=== PATIENT | female | born 1980 ===

== ENCOUNTER 2018-02-04 20:13 | Emergency (ER) | payer BC ==
[2018-02-04 20:28] VITALS: O2SAT 100
[2018-02-04] MEDS ORDERED: Sodium Chloride 0.9% 1,000 ML IV STA (21:00)
[2018-02-04 21:13] LABS: BASO % 0.5 % (0.0-2.0); EOS # 0.2 K/uL (0.0-0.7); EOS % 1.7 % (0.0-4.0); LYMPH # 1.9 K/uL (1.0-4.3); LYMPH % 21.5 % (20.0-40.0); MEAN CELL VOLUME 79.1 fl (81.0-99.0); MEAN CORPUSCULAR HEMOGLOBIN 26.3 pg (27.0-31.0); MEAN CORPUSCULAR HGB CONC 33.3 g/dL (33.0-37.0); MEAN PLATELET VOLUME 7.6 fl (7.2-11.7); MONO # 0.8 K/uL (0.0-0.8); MONO % 9.3 % (0.0-10.0); NRBC % 0.1 % (0.0-0.0); RBC 4.93 Mil/uL (3.80-5.20); RED CELL DISTRIBUTION WIDTH 14.1 % (11.5-14.5)
[2018-02-04 21:40] LABS: BLOOD UREA NITROGEN 15 mg/dl (7-17); CALCIUM 8.9 mg/dL (8.4-10.2); GFR AFRICAN-AMERICAN > 60; GFR NON-AFRICAN AMERICAN > 60
--- NOTE | 2018-02-04 21:51 | ED PDOC ---
Syncope/Near Syncope/Dizziness Time Seen by Provider: 02/04/18 20:41 Chief Complaint (Nursing): Syncope Chief Complaint (Provider): Syncope History Per: Patient History/Exam Limitations: no limitations Onset/Duration Of Symptoms: Sudden Onset Current Symptoms Are (Timing): Better Additional Complaint(s): 37 year old female with pmHx of anxiety, arrives to the ED for an evaluation of a witnessed syncopal episode prior to arrival. Patient states feeling dizziness with spinning sensation exacerbated with head movements prior to onset. Her witnessed 2-3 seconds of LOC and able to catch patient before she fell to the ground then returned to normal mental status. Patient denies any head injury, seizures, chest pain, headache, difficulty breathing, weakness, numbness or tinnitis. She admits to recent anxiety and prescribed Clozapine but has not start it yet. PMD: none provided Past Medical History Reviewed: Historical Data, Nursing Documentation, Vital Signs Vital Signs: Last Vital Signs Temp 97.9 F 02/04/18 20:25 Pulse 78 02/04/18 20:25 Resp 18 02/04/18 20:25 BP 120/68 02/04/18 20:25 Pulse Ox 100 02/04/18 20:25 - Medical History PMH: Anxiety - Surgical History Surgical History: Appendectomy, - Family History Family History: States: No Known Family Hx - Social History Current smoker - smoking cessation education provided: No Ex-Smoker (has not smoked in the last 12 months): No Alcohol: None Drugs: Denies - Home Medications Home Medications: Ambulatory Orders Medication Instructions Recorded Meclizine [Meclizine*] 25 mg PO TID PRN #15 tab 02/04/18 - Allergies Allergies/Adverse Reactions: Allergies Allergy/AdvReac Type Severity Reaction Status Date / Time No Known Allergies Allergy Verified 02/04/18 20:25 Review of Systems ROS Statement: Except As Marked, All Systems Reviewed And Found Negative ENT: Negative for: Other (tinnitis) Cardiovascular: Negative for: Chest Pain Respiratory: Negative for: Shortness of Breath Neurological: Positive for: Dizziness, Other (LOC). Negative for: Weakness, Numbness, Seizures, Headache Physical Exam - Reviewed Nursing Documentation Reviewed: Yes Vital Signs Reviewed: Yes - Physical Exam Appears: Positive for: Well, Non-toxic, No Acute Distress Head Exam: Positive for: ATRAUMATIC, NORMAL INSPECTION, NORMOCEPHALIC Skin: Positive for: Normal Color Eye Exam: Positive for: Normal appearance, EOMI, PERRL ENT: Positive for: Normal ENT Inspection Neck: Positive for: Normal, Supple Cardiovascular/Chest: Positive for: Regular Rate, Rhythm, Chest Non Tender. Negative for: Murmur Respiratory: Positive for: Normal Breath Sounds. Negative for: Wheezing, Respiratory Distress Gastrointestinal/Abdominal: Positive for: Normal Exam, Soft. Negative for: Tenderness Back: Positive for: Normal Inspection Extremity: Positive for: Normal ROM (upper/lower) Neurologic/Psych: Positive for: Alert (x3), vinyl hanger II-XII (grossly intact), Oriented. Negative for: Motor/Sensory Deficits, Aphasia - Laboratory Results Result Diagrams: 02/04/18 21:05 02/04/18 21:05 Urine POC: Negative - ECG ECG: Positive for: Interpreted By Me ECG Rhythm: Positive for: Normal QRS, Sinus Rhythm. Negative for: ST/T Changes Rate: 93 O2 Sat by Pulse Oximetry: 100 (RA) Pulse Ox Interpretation: Normal - Progress ED Course And Treament: Time: 2149 --Labs reviewed: no significant clinical abnormality. Time: 2158 --CT head FINDINGS: Brain: Unremarkable. No hemorrhage. No significant white matter disease. No edema. Ventricles: Unremarkable. No ventriculomegaly. Bones/joints: Unremarkable. No acute fracture. Soft tissues: Unremarkable. Sinuses: Unremarkable as visualized. No acute sinusitis. Mastoid air cells: Unremarkable as visualized. No mastoid effusion. IMPRESSION: No evidence of acute intracranial hemorrhage Re-evaluation Time: 23:08 Condition: Re-examined, Improved Medical Decision Making Medical Decision Making: Initial Impression: Dizziness: Syncope Differential Diagnosis: Benign Paroxysmal Positional Vertigo; central vertigo; cardiac arrythmia; seizure; CVA; vasovagal syncope; psychogenic illness; anxiety Initial Plan: * CT head without contrast * EKG * Alcohol serum * BMP * Troponin I * Urine * CBC * Antivert 25mg PO * NS 1,000ml per 1,000mls/hr 2308 Upon reevaluation, patient ambulated without dizziness and with steady gait. Scribe Attestation: Documented by Chen Wallace, acting as a scribe for Janie Herron MD. Provider Scribe Attestation: All medical record entries made by the Scribe were at my direction and personally dictated by me. I have reviewed the chart and agree that the record accurately reflects my personal performance of the history, physical exam, medical decision making, and the department course for this patient. I have also personally directed, reviewed, and agree with the discharge instructions and disposition. Disposition - Clinical Impression Clinical Impression: Syncope, Vertigo, Anxiety - Patient ED Disposition Is Patient to be Admitted: No Doctor Will See Patient In The: Office Counseled Patient/Family Regarding: Studies Performed, Diagnosis, Need For Followup - Disposition Referrals: [facility] [Outside] Disposition: Routine/Home Disposition Time: 23:09 Condition: STABLE Additional Instructions: Take your medications as instructed. Follow up with your PCP in 2-3 days. Prescriptions: Meclizine [Meclizine*] 25 mg PO TID PRN #15 tab PRN Reason: Dizziness Instructions: Vertigo (a Type of Dizziness), Syncope (Fainting) (DC) Print Language: CITIZEN OF [place]
[2018-02-04 23:05] VITALS: PULSE 93
[2018-02-04 23:11] VITALS: BP 121/74; RESP 16; TEMP 98.2
--- NOTE | 2018-02-05 08:25 | CT ---
Date of service: 02/04/2018 PROCEDURE: CT HEAD WITHOUT CONTRAST. HISTORY: dizziness COMPARISON: None available. TECHNIQUE: Axial computed tomography images were obtained through the head/brain without intravenous contrast. Radiation dose: Total exam DLP = 819 mGy-cm. This CT exam was performed using one or more of the following dose reduction techniques: Automated exposure control, adjustment of the mA and/or kV according to patient size, and/or use of iterative reconstruction technique. FINDINGS: HEMORRHAGE: No intracranial hemorrhage. BRAIN: No mass effect or edema. No atrophy or chronic microvascular ischemic changes. VENTRICLES: Unremarkable. No hydrocephalus. CALVARIUM: Unremarkable. PARANASAL SINUSES: Unremarkable as visualized. No significant inflammatory changes. MASTOID AIR CELLS: Unremarkable as visualized. No inflammatory changes. OTHER FINDINGS: None. IMPRESSION: Normal CT of the Head. Concordant results (preliminary interpretation) provided by [facility].
--- NOTE | 2018-02-05 13:26 | CARD ---
APPROVED REPORT Date of service: 02/04/2018 EKG Measurement Heart [id number] <Conclusion> Normal sinus rhythm Non specific Junctional ST depressio Abnormal ECG
== END 2018-02-04 23:46 | disposition home or self-care (01) ==
LOC: H.ER 20:13
DX: R55 Syncope and collapse (principal); R42 Dizziness and giddiness; F41.9 Anxiety disorder, unspecified
CPT/HCPCS: 70450; 80048; 81025; 84484; 85025; 93005; 99285; G0480; J7030

== ENCOUNTER 2018-03-10 17:55 | Emergency (ER) | payer BC ==
[2018-03-10 18:01] VITALS: RESP 16; TEMP 99.4
--- NOTE | 2018-03-10 18:42 | ED PDOC ---
HPI: Headache Time Seen by Provider: 03/10/18 18:12 Chief Complaint (Nursing): Headache Chief Complaint (Provider): Headache History Per: Patient History/Exam Limitations: no limitations Onset/Duration Of Symptoms: Days (x2 weeks) Current Symptoms Are (Timing): Still Present Additional Complaint(s): 37 year old female with a history of migraines and anxiety presents to the ED complaining of left sided and posterior headache onset 2 weeks ago. Patient reports pain worsened today at 3 pm. She has associated left sided neck and shoulder pain that increases with touch and movement. Patient states her migraines never last this long or have associated muscle pain. 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 Patient describes pain as an 8 out of 10 in severity, but denies fever, chills, nausea, vomiting, photophobia, phonophobia, neck stiffness , weakness, numbness, abdominal pain, chest pain, shortness of breath or any other medical complaints. Patient was recently seen in this ED on 02/04/18 for syncopal episode associated dizziness, she had an unremarkable workup including head CT and labs. PMD: cannot recall LNMP: 2 weeks ago Past Medical History Reviewed: Historical Data, Nursing Documentation, Vital Signs Vital Signs: Last Vital Signs Temp 99.4 F 03/10/18 18:00 Pulse 101 H 03/10/18 18:00 Resp 16 03/10/18 18:00 BP 113/75 03/10/18 18:00 Pulse Ox 99 03/10/18 18:00 - Medical History PMH: Anxiety, Migraine - Surgical History Surgical History: Appendectomy, - Family History Family History: States: Unknown Family Hx - Social History Current smoker - smoking cessation education provided: No Ex-Smoker (has not smoked in the last 12 months): No Alcohol: None Drugs: Denies - Home Medications Home Medications: Ambulatory Orders Medication Instructions Recorded Meclizine [Meclizine*] 25 mg PO TID PRN #15 tab 02/04/18 Cyclobenzaprine [Cyclobenzaprine 10 mg PO Q8 PRN #12 tab 03/10/18 HCl] Naproxen [Naprosyn] 500 mg PO BID PRN #20 tablet 03/10/18 - Allergies Allergies/Adverse Reactions: Allergies Allergy/AdvReac Type Severity Reaction Status Date / Time No Known Allergies Allergy Verified 02/04/18 20:25 Review of Systems ROS Statement: Except As Marked, All Systems Reviewed And Found Negative Musculoskeletal: Positive for: Neck Pain (left), Shoulder Pain (left) Neurological: Positive for: Headache Physical Exam - Reviewed Nursing Documentation Reviewed: Yes Vital Signs Reviewed: Yes - Physical Exam Comments: GENERAL APPEARANCE: Patient is awake, alert, oriented x 3, in no acute distress. Resting comfortably. SKIN: Warm, dry; (-) cyanosis; (-) rash. HEAD: (-) scalp swelling or tenderness, (-) temporal artery tenderness. EYES: (-) conjunctival pallor, (-) scleral icterus. ENMT: (-) sinus tenderness; mucous membranes are moist. Pharynx clear, uvula midline (-) erythema (-) exudate. Airway patent, (-) stridor. NECK: Supple, FROM (+) left paracervical tenderness (-) midline tenderness, (-) stiffness, (-) meningismus, (-) lymphadenopathy. CHEST AND RESPIRATORY: (-) rales, (-) rhonchi, (-) wheezes; breath sounds equal bilaterally. Respirations even and nonlabored. HEART AND CARDIOVASCULAR: (-) irregularity ABDOMEN AND GI: Soft; (-) tenderness (-) guarding (-) distention EXTREMITIES: (-) deformity (+) left trapezius tenderness. FROM bilateral upper extremities with pain on extension of left shoulder. Sensation intact throughout (-) effusion (-) ecchymosis NEURO AND PSYCH: Mental status as above. supervisor [place]: Pupils equal and reactive; EOMI and painless; (-) facial asymmetry; Strength and smile symmetric. Gait: steady. Speech: clear. Cerebellar tests intact. - Laboratory Results Result Diagrams: 03/10/18 18:55 03/10/18 18:55 Urine POC: Negative Urine dip results: Negative for: Leukocyte Esterase, Blood, Nitrate, Ketones, Glucose, Bilirubin, Protein - ECG O2 Sat by Pulse Oximetry: 99 (RA) Pulse Ox Interpretation: Normal Medical Decision Making Medical Decision Making: Time: 18:40 Initial Impression: headache, muscle spasm of neck Initial Plan: --BMP --CBC with differentials --Reglan 10 mg IVP --Toradol 30 mg IVP --Valium 5 mg PO --IV access --Re-evaluation Udip reviewed and unremarkable. Upreg: negative 19:50 Patient reports complete resolution of symptoms. Repeat HR: 94 Patient remains AAOx3, in no acute distress. Lungs clear to auscultation, cardiac RRR, abdomen soft, non-tender, repeat neuro exam shows no focal findings. Lab/Diagnostic results d/w the patient in great detail. Diagnosis of headache, muscle spasm of neck d/w the patient. Based on history, exam and diagnostic results, plan will be for outpatient follow up. Patient instructed to follow-up with pmd / referral provided / the clinic in 1- 2 days without fail. Advised to take medication as prescribed. Return to the emergency room at any time for any new or worsening symptoms. Patient states she fully agrees with and understands discharge instructions. States that she agrees with the plan and disposition. Verbalized and repeated discharge instructions and plan. I have given the patient opportunity to ask any additional questions. Scribe Attestation: Documented by Vesta Ramires, acting as a scribe for Balbina Soto PA-C Provider Scribe Attestation: All medical record entries made by the Scribe were at my direction and personally dictated by me. I have reviewed the chart and agree that the record accurately reflects my personal performance of the history, physical exam, medical decision making, and the department course for this patient. I have also personally directed, reviewed, and agree with the discharge instructions and disposition. Disposition - Clinical Impression Clinical Impression: Tension headache, Muscle spasms of neck - Patient ED Disposition Is Patient to be Admitted: No Counseled Patient/Family Regarding: Studies Performed, Diagnosis, Need For Followup, Rx Given - Disposition Referrals: [facility] [place] [Outside] Evans Benoit MD [Medical Doctor] - Disposition: Routine/Home Disposition Time: 19:52 Condition: IMPROVED Additional Instructions: La atencin mdica de emergencia que recibi hoy se dirigi a los sntomas agudos de presentacin. Si le prescribieron algn medicamento, por favor ll lexx y d connie indicado. Era sntomas pueden tardar varios salvador en resolverse. Regrese al Departamento de Emergencia en cualquier momento si los sntomas empeoran, no mejoran o si surge algn otro problema. Comunquese con wiley mdico en 2 salvador para reinaldo reevaluacin y seguimiento / o llame a mauricio de los mdicos / clnicas a los que santamaria referido y que figura en el formulario de Informacin de visitas del paciente que se incluye en wiley [place]. Lleve todos los documentos que recibi al momento del geremias junto con los medicamentos a wiley visita de seguimiento. Nuestro tratamiento no puede reemplazar la atencin mdica en curso por parte de un proveedor de atencin primaria (PCP) fuera del departamento de emergencias. Prescriptions: Cyclobenzaprine [Cyclobenzaprine HCl] 10 mg PO Q8 PRN #12 tab PRN Reason: Muscle Spasm Naproxen [Naprosyn] 500 mg PO BID PRN #20 tablet PRN Reason: Pain, Moderate (4-7) Instructions: Tension Headache, Headache, Adult, Muscle Spasms (DC) Forms: [employer] (Cameroonian) Print Language: FRENCH - POA Present On Arrival: None Results - Lab Results Lab Results: 03/10/18 03/10/18 18:55 18:55 WBC 14.1 H D RBC 4.77 Hgb 12.2 Hct 37.6 MCV 78.9 L MCH 25.6 L MCHC 32.5 L RDW 13.9 Plt Count 237 MPV 7.5 Neut % (Auto) 88.2 H Lymph % (Auto) 5.2 L [place] % (Auto) 5.7 Eos % (Auto) 0.5 Baso % (Auto) 0.4 Neut # (Auto) 12.5 H Lymph # (Auto) 0.7 L [place] # (Auto) 0.8 Eos # (Auto) 0.1 Baso # (Auto) 0.1 Neutrophils % (Manual) 90 H Lymphocytes % (Manual) 6 L Monocytes % (Manual) 4 Platelet Estimate Normal Anisocytosis (manual) Slight Sodium 138 Potassium 3.9 Chloride 106 Carbon Dioxide 23 Anion Gap 13 BUN 16 Creatinine 0.7 Est GFR ( Amer) > 60 Est GFR (Non-Af Amer) > 60 Random Glucose 89 Calcium 8.7
[2018-03-10 19:02] LABS: BASO # 0.1 K/uL (0.0-0.2); BASO % 0.4 % (0.0-2.0); EOS # 0.1 K/uL (0.0-0.7); EOS % 0.5 % (0.0-4.0); HEMOGLOBIN 12.2 g/dL (12.0-16.0); LYMPH # 0.7 K/uL (1.0-4.3); LYMPH % 5.2 % (20.0-40.0); MEAN CELL VOLUME 78.9 fl (81.0-99.0); MEAN CORPUSCULAR HEMOGLOBIN 25.6 pg (27.0-31.0); MEAN CORPUSCULAR HGB CONC 32.5 g/dL (33.0-37.0); MEAN PLATELET VOLUME 7.5 fl (7.2-11.7); MONO # 0.8 K/uL (0.0-0.8); MONO % 5.7 % (0.0-10.0); NEUT # 12.5 K/uL (1.8-7.0); NEUT % 88.2 % (50.0-75.0); PLATELET COUNT 237 K/uL (130-400); RBC 4.77 Mil/uL (3.80-5.20); RED CELL DISTRIBUTION WIDTH 13.9 % (11.5-14.5); WHITE BLOOD COUNT 14.1 K/uL (4.8-10.8)
[2018-03-10 19:11] LABS: BLOOD UREA NITROGEN 16 mg/dl (7-17); CALCIUM 8.7 mg/dL (8.4-10.2); GFR NON-AFRICAN AMERICAN > 60
[2018-03-10 19:53] LABS: LYMPHOCYTE 6 % (20-50); MONOCYTE 4 % (0-10); NEUTROPHIL 90 % (42-75); PLATELET ESTIMATE NORMAL (NORMAL); TOTAL CELLS COUNTED 100
[2018-03-10 19:54] LABS: ANISOCYTOSIS SLIGHT
[2018-03-10 19:56] VITALS: BP 101/54; PULSE 94
[2018-03-11 15:34] VITALS: O2SAT 99
== END 2018-03-10 20:11 | disposition home or self-care (01) ==
LOC: H.ER 17:55
DX: G44.209 Tension-type headache, unspecified, not intractable (principal); M62.838 Other muscle spasm; Z87.891 Personal history of nicotine dependence
CPT/HCPCS: 80048; 81025; 85025; 96374; 96375; 99285; J1885; J2765

== ENCOUNTER 2018-09-23 17:36 | Emergency (ER) | payer BC ==
[2018-09-23 17:44] VITALS: RESP 18; TEMP 98
--- NOTE | 2018-09-23 18:30 | RAD ---
HISTORY: cough COMPARISON: None available. TECHNIQUE: Chest PA and lateral FINDINGS: LUNGS: No focal consolidation. Please note that chest x-ray has limited sensitivity for the detection of pulmonary masses. PLEURA: No significant pleural effusion identified. No definite pneumothorax . CARDIOVASCULAR: Heart size appears within normal limits. No atherosclerotic calcification present. OSSEOUS STRUCTURES: No acute osseous abnormality identified. VISUALIZED UPPER ABDOMEN: Mild elevation of the right hemidiaphragm. OTHER FINDINGS: None. IMPRESSION: No focal consolidation.
[2018-09-23 19:01] LABS: BASO % 0.5 % (0.0-2.0); BLOOD UREA NITROGEN 18 mg/dl (7-17); CALCIUM 9.4 mg/dL (8.4-10.2); EOS # 0.1 K/uL (0.0-0.7); EOS % 1.4 % (0.0-4.0); GFR NON-AFRICAN AMERICAN > 60; HEMOGLOBIN 12.3 g/dL (12.0-16.0); LYMPH # 1.8 K/uL (1.0-4.3); LYMPH % 25.3 % (20.0-40.0); MEAN CELL VOLUME 79.7 fl (81.0-99.0); MEAN CORPUSCULAR HEMOGLOBIN 26.1 pg (27.0-31.0); MEAN CORPUSCULAR HGB CONC 32.7 g/dL (33.0-37.0); MONO # 0.6 K/uL (0.0-0.8); MONO % 8.8 % (0.0-10.0); NEUT # 4.6 K/uL (1.8-7.0); RBC 4.74 Mil/uL (3.80-5.20); RED CELL DISTRIBUTION WIDTH 14.1 % (11.5-14.5); WHITE BLOOD COUNT 7.1 K/uL (4.8-10.8)
--- NOTE | 2018-09-23 19:02 | ED PDOC ---
HPI: Chest Pain Time Seen by Provider: 09/23/18 17:56 Chief Complaint (Nursing): Chest Pain Chief Complaint (Provider): Chest Pain History Per: Patient History/Exam Limitations: no limitations Onset/Duration Of Symptoms: Days (x 1) Current Symptoms Are (Timing): Still Present Quality: "Pain" Associated Symptoms: Dyspnea Additional Complaint(s): 38 year old female with no significant medical history presents to the ED for evaluation of midsternal chest pain and shortness of breath, onset today. Patient states at onset she was at work. She admits that she has been under a lot of stress lately including fighting with her . Pain does not radiate and is not associated with any physical exertion. Patient offers no other complaints at this time. PMD: none provided Past Medical History Reviewed: Historical Data, Nursing Documentation, Vital Signs Vital Signs: Last Vital Signs Temp 98 F 09/23/18 17:44 Pulse 74 09/23/18 17:44 Resp 18 09/23/18 17:44 BP 122/75 09/23/18 17:44 Pulse Ox 100 09/23/18 17:44 - Medical History PMH: Anxiety, Migraine - Surgical History Surgical History: Appendectomy, - Family History Family History: States: Unknown Family Hx - Home Medications Home Medications: Ambulatory Orders Medication Instructions Recorded Meclizine [Meclizine*] 25 mg PO TID PRN #15 tab 02/04/18 Cyclobenzaprine [Cyclobenzaprine 10 mg PO Q8 PRN #12 tab 03/10/18 HCl] Naproxen [Naprosyn] 500 mg PO BID PRN #20 tablet 03/10/18 - Allergies Allergies/Adverse Reactions: Allergies Allergy/AdvReac Type Severity Reaction Status Date / Time No Known Allergies Allergy Verified 09/23/18 17:43 Review of Systems ROS Statement: Except As Marked, All Systems Reviewed And Found Negative Constitutional: Negative for: Fever Cardiovascular: Positive for: Chest Pain Respiratory: Positive for: Shortness of Breath Gastrointestinal: Negative for: Nausea, Vomiting Musculoskeletal: Negative for: Shoulder Pain Neurological: Negative for: Headache, Dizziness Physical Exam - Reviewed Nursing Documentation Reviewed: Yes Vital Signs Reviewed: Yes - Physical Exam Appears: Positive for: Non-toxic, No Acute Distress Head Exam: Positive for: ATRAUMATIC, NORMAL INSPECTION, NORMOCEPHALIC Skin: Positive for: Normal Color, Warm, Dry Eye Exam: Positive for: EOMI, Normal appearance, PERRL Neck: Positive for: Normal, Painless ROM, Supple Cardiovascular/Chest: Positive for: Regular Rate, Rhythm. Negative for: Murmur Respiratory: Positive for: Normal Breath Sounds. Negative for: Wheezing, Respiratory Distress Gastrointestinal/Abdominal: Positive for: Normal Exam, Soft. Negative for: Tenderness Back: Positive for: Normal Inspection. Negative for: L CVA Tenderness, R CVA Tenderness Extremity: Positive for: Normal ROM (x 4). Negative for: Deformity, Swelling Neurological/Psych: Positive for: Awake, Alert, Normal Tone. Negative for: Motor/Sensory Deficits - Laboratory Results Result Diagrams: 09/23/18 18:40 09/23/18 18:40 - ECG O2 Sat by Pulse Oximetry: 100 (RA) Pulse Ox Interpretation: Normal Medical Decision Making Medical Decision Makin:02 MDM: workup for chest pain; low risk for adverse cardiac event Labs, Ibuprofen for chest pain reassess patient 19:00 Patient will be signed out to Dr. Haynes pending workup, reassessment and final disposition. Scribe Attestation: Documented by Gladys Loen, acting as a scribe for Balbina Cortez MD. Provider Scribe Attestation: All medical record entries made by the Scribe were at my direction and personally dictated by me. I have reviewed the chart and agree that the record accurately reflects my personal performance of the history, physical exam, medical decision making, and the department course for this patient. I have also personally directed, reviewed, and agree with the discharge instructions and disposition. Disposition - Clinical Impression Clinical Impression: Anxiety - Patient ED Disposition Is Patient to be Admitted: Transfer of Care - Disposition Disposition: Transfer of Care Disposition Time: 19:04 Condition: IMPROVED Additional Instructions: SAMIRA ACEVEDO, thank you for letting us take care of you today. Your provider was Brian Haynes MD and you were treated for CHEST TIGHTNESS. The emergency medical care you received today was directed at your acute symptoms. If you were prescribed any medication, please fill it and take as directed. It may take several days for your symptoms to resolve. Return to the Emergency Department if your symptoms worsen, do not improve, or if you have any other problems. Please contact your doctor or call one of the physicians/clinics you have been referred to that are listed on the Patient Visit Information form that is inc luded in your discharge packet. Bring any paperwork you were given at discharge with you along with any medications you are taking to your follow up visit. Our treatment cannot replace ongoing medical care by a primary care provider outside of the emergency department. Thank you for allowing the [facility] team to be part of your care today. If you had an X-Ray or CT scan: A Radiologist will review the ED reading if any change in treatment is needed we will contact you. If you had a blood, urine, or wound culture: It will take several days for the results, if any change in treatment is needed we will contact you. If you had an STI test: It will take 48 hours for the results. Please call after 1 week if you have not heard back. Instructions: Anxiety, Adult (DC) Forms: [employer] (Italian) Patient Signed Over To: Brian Haynes
--- NOTE | 2018-09-23 20:23 | ED PDOC ---
- Laboratory Results Result Diagrams: 09/23/18 18:40 09/23/18 18:40 Lab Results: Troponin I < 0.0120 ng/mL (0.00-0.120) 09/23/18 18:40 - ECG O2 Sat by Pulse Oximetry: 100 (RA) Pulse Ox Interpretation: Normal Medical Decision Making Medical Decision Makin:00 --Patient signed out to this provider by Dr. Cortez pending further ER workup, reassessment and final disposition. Patient is steady, awake and alert at this time. 20:20 --On reevaluation, patient reports complete improvement of symptoms. Labs were reviewed and reveal no clinically significant abnormalities. She is stable for discharge and requires no further treatment in the ED. Return precautions provided. ------ Scribe Attestation: Documented by Gladys Leon, acting as a scribe for Brian Haynes MD. Provider Scribe Attestation: All medical record entries made by the Scribe were at my direction and personally dictated by me. I have reviewed the chart and agree that the record accurately reflects my personal performance of the history, physical exam, medical decision making, and the department course for this patient. I have also personally directed, reviewed, and agree with the discharge instructions and disposition. Disposition - Clinical Impression Clinical Impression: Anxiety - POA Present On Arrival: None - Disposition Disposition: Routine/Home Disposition Time: 20:20 Condition: IMPROVED Additional Instructions: SAMIRA ACEVEDO, thank you for letting us take care of you today. Your provider was Brian Haynes MD and you were treated for CHEST TIGHTNESS. The emergency medical care you received today was directed at your acute symptoms. If you were prescribed any medication, please fill it and take as directed. It may take several days for your symptoms to resolve. Return to the Emergency Department if your symptoms worsen, do not improve, or if you have any other pr oblems. Please contact your doctor or call one of the physicians/clinics you have been referred to that are listed on the Patient Visit Information form that is included in your discharge packet. Bring any paperwork you were given at discharge with you along with any medications you are taking to your follow up visit. Our treatment cannot replace ongoing medical care by a primary care provider outside of the emergency department. Thank you for allowing the [facility] team to be part of your care today. If you had an X-Ray or CT scan: A Radiologist will review the ED reading if any change in treatment is needed we will contact you. If you had a blood, urine, or wound culture: It will take several days for the results, if any change in treatment is needed we will contact you. If you had an STI test: It will take 48 hours for the results. Please call after 1 week if you have not heard back. Instructions: Anxiety, Adult (DC) Forms: [employer] (Latvian)
[2018-09-23 21:43] VITALS: BP 120/83; PULSE 78
--- NOTE | 2018-09-24 08:39 | CARD ---
APPROVED REPORT Date of service: 09/23/2018 EKG Measurement Heart [id number] 140P-1 [id number] <Conclusion> Normal sinus rhythm Normal ECG
[2018-09-25 05:08] VITALS: O2SAT 100
== END 2018-09-23 20:19 | disposition home or self-care (01) ==
LOC: H.ER 17:36
DX: F41.9 Anxiety disorder, unspecified (principal)